=== PATIENT | female | born 1955 | race Caucasian/White ===

== ENCOUNTER 2022-04-15 17:48 | Inpatient (IN) ==
[2022-04-15 19:55] VITALS: BMI 24.7
[2022-04-15] MEDS: LR 1,000 ML IV 1,000 ML IV SCH (20:30)
[2022-04-15] MEDS: ZOSYN VIAL 3.375 GRAMS 3.375 G in NS 100 ML IV 100 ML IV SCH (20:59)
[2022-04-15] MEDS: DILAUDID INJ IVP PRN (23:24)
[2022-04-16 05:10] LABS: BASOPHILS # (AUTO) 0.2 X10^3/uL (0.0-0.1); BASOPHILS % (AUTO) 0.7 % (0.2-1.0); HEMATOCRIT 45.5 % (36.0-47.0); HEMOGLOBIN 15.4 g/dL (12.0-16.0); LYMPHOCYTES # (AUTO) 1.6 X10^3/uL (1.3-2.9); LYMPHOCYTES % (AUTO) 7.4 % (21.0-51.0); MEAN CORPUSCULAR HEMOGLOBIN 29.7 pg (27.0-34.0); MEAN CORPUSCULAR HGB CONC 33.8 g/dL (33.0-35.0); MEAN CORPUSCULAR VOLUME 87.9 fL (80.0-100.0); MEAN PLATELET VOLUME 7.5 fL (7.4-11.0); MONOCYTES # (AUTO) 0.7 x10^3/uL (0.3-0.8); MONOCYTES % (AUTO) 3.2 % (0.0-13.0); NEUTROPHILS # (AUTO) 19.3 x10^3/uL (2.2-4.8); NEUTROPHILS % (AUTO) 88.7 % (42.0-75.0); RED BLOOD COUNT 5.18 X10^6/uL (3.5-5.4); RED CELL DISTRIBUTION WIDTH 13.1 % (11.6-16.5); WHITE BLOOD COUNT 21.8 X10^3/uL (3.6-10.0)
[2022-04-16 05:25] LABS: ALANINE AMINOTRANSFERASE 17 Units/L (12-78); ALBUMIN 3.7 g/dL (3.4-5.0); ALKALINE PHOSPHATASE 90 Units/L (46-116); ASPARTATE AMINO TRANSFERASE 14 Units/L (15-37); BLOOD UREA NITROGEN 16 mg/dL (7-18); CALCIUM 8.8 mg/dL (8.5-10.1); CHLORIDE 97 mmol/L (98-107); COR NA(FOR HYPERGLY) 137 mmol/L (136-145); SODIUM 136 mmol/L (136-145); TOTAL PROTEIN 7.7 g/dL (6.4-8.2); eGFR NON BLACK RACES 47 (>60)
[2022-04-16 05:30] LABS: BAND NEUTROPHILS % 2 % (0-10)
[2022-04-16 05:31] LABS: PLATELET MORPHOLOGY COMMENT NORMAL (NORMAL)
[2022-04-16] MEDS: ZOSYN VIAL 3.375 GRAMS 3.375 G in NS 100 ML IV 100 ML IV SCH (06:33)
[2022-04-16] MEDS: LR 1,000 ML IV 1,000 ML IV SCH ×2 (07:54→10:04)
[2022-04-16] MEDS: DILAUDID INJ IVP PRN ×4 (07:55→18:19)
--- NOTE | 2022-04-16 09:58 | EKG ---
Test Reason : pre op Blood Pressure : */* mmHG Vent. Rate : 65 BPM Atrial Rate : 65 BPM P-R Int : 156 ms QRS Dur : 78 ms QT Int : 452 ms P-R-T Axes : 57 98 -84 degrees QTc Int : 470 ms Normal sinus rhythm Rightward axis Cannot rule out Inferior infarct , age undetermined Abnormal ECG No previous ECGs available Nonspecific T wave abnormality Confirmed by Carlos Alberto Shrestha ([id number]) on 04/17/2022 10:09:08 AM Referred By: Confirmed By: Carlos Alberto Shrestha
[2022-04-16] MEDS: K-RIDER 10 MEQ/NS 100 ML 10 MEQ/100 ML BAG IV SCH ×2 (10:11→15:29)
--- NOTE | 2022-04-16 10:35 | RAD ---
HISTORYPreop appendixSTUDYAP [id number] report onlyFINDINGSHeart size normal with sternal wires and clear lungs and pleural spaces.IMPRESSIONPostsurgical findings; no acute chest abnormality identified.Electronically signed by: AURELIANO MCKOY (Apr 16, 2022 10:33:44)
[2022-04-16] MEDS: MAGNESIUM SULFATE 1 GRAM/100 mL PREMIX 1 G/100 ML BAG IV PRN ×2 (11:41→17:00)
[2022-04-16] MEDS ORDERED: DUONEB 0.5 MG/3 MG (3 mL) NEB ONE (12:00)
[2022-04-16] MEDS ORDERED: ZOFRAN INJ 4 MG VIAL ONE ×2 (12:31→18:17)
[2022-04-16] MEDS ORDERED: PEPCID 20 MG VIAL ONE (12:31)
[2022-04-16] MEDS ORDERED: ZEMURON 100 MG VIAL ONE (12:31)
[2022-04-16] MEDS ORDERED: XYLOCAINE 2 % (PLAIN) ONE (12:31)
[2022-04-16] MEDS ORDERED: DIPRIVAN VIAL 20 ML ONE (12:31)
[2022-04-16] MEDS ORDERED: BRIDION ONE (12:32)
[2022-04-16] MEDS ORDERED: VERSED ONE (12:34)
[2022-04-16] MEDS ORDERED: FENTANYL VIAL INJ 100 mcg ONE (12:35)
[2022-04-16] MEDS ORDERED: MARCAINE/EPINEPHRINE ONE (12:38)
[2022-04-16] MEDS ORDERED: LR 1,000 ML IV 1,000 ML IV ONE (12:57)
[2022-04-16] MEDS ORDERED: ANCEF VIAL 1 GRAM ONE (13:02)
[2022-04-16] MEDS ORDERED: NS 100 ML IV 100 ML ONE (13:02)
[2022-04-16] MEDS ORDERED: ULTANE GAS IN ONE (13:16)
[2022-04-16] MEDS ORDERED: KETAMINE HCL ONE (13:16)
--- NOTE | 2022-04-16 13:20 | DR.H&P ---
H&P History & Physical for Day of: H&P Date: 04/16/22 Chief Complaint Chief Complaint: Abdominal pain, not mailnly RLQ. Allergies Allergies Allergy/AdvReac Type Severity Reaction Status Date / Time codeine Allergy Verified 04/15/22 19:11 History of Present Illness History of Present Illness: 66 year old female with 1 day history of diffuse lower abdominal pain now relocated to the right lower quadrant. Was evaluated at the emergency room in [place], [place] with a CT scan consistent with acute appendicitis with no evidence of rupture. [place] [id number] also evidence of probable urinary tract infection. Patient transferred to [facility] for laparoscopic appendectomy. Past Medical History Past Medical History: Anxiety, Coronary Artery Disease (History of CABG 2016. This was done for chest pain. No chest pain since that time period and has been followed regular by her slipman in [place] and she says she had a stress test within the last year which was negative. Continues to smoke cigarettes but not as heavily. She is not diabetic. ), GERD and Hypertension Additional Medical History: elevated cholesterol Past Surgical History Surgical History: , CABG/Valve Surgery and Ortho Surgery (Fusion of C-5 6 in the past ) Family History Family Medical History: Cancer Social History Does patient currently use any type of tobacco product: Yes Have you used tobacco products in the last 12 months: Yes Type of Tobacco Use: Cigarettes How many years tobacco product used: 50 Alcohol Use: None Drug Use: None Medications Home Medications: codeine Allergy (Verified 04/15/22 19:11) CONTINUE taking the following medications aspirin 81 mg tablet,delayed release 81 mg PO QDAY 04/16/22 [History] gabapentin 300 mg capsule 300 mg PO QHS 04/16/22 [History] metoprolol tartrate 25 mg tablet 25 mg PO QDAY 04/16/22 [History] pantoprazole 20 mg tablet,delayed release 1 tab PO QDAY 04/16/22 [History] simvastatin 40 mg tablet 1 tab PO QPM 04/16/22 [History] Labs Result Diagrams: 04/16/22 04:43 04/16/22 04:43 Labs: Laboratory WBC 21.8 X10^3/uL (3.6-10.0) H 04/16/22 04:43 RBC 5.18 X10^6/uL (3.5-5.4) 04/16/22 04:43 Hgb 15.4 g/dL (12.0-16.0) 04/16/22 04:43 Hct 45.5 % (36.0-47.0) 04/16/22 04:43 MCV 87.9 fL (80.0-100.0) 04/16/22 04:43 MCH 29.7 pg (27.0-34.0) 04/16/22 04:43 MCHC 33.8 g/dL (33.0-35.0) 04/16/22 04:43 RDW 13.1 % (11.6-16.5) 04/16/22 04:43 Plt Count 274 X10^3/uL (150.0-450.0) 04/16/22 04:43 Plt Count Comment Adequate (ADEQUATE) 04/16/22 04:43 MPV 7.5 fL (7.4-11.0) 04/16/22 04:43 Neut % (Auto) 88.7 % (42.0-75.0) H 04/16/22 04:43 Lymph % (Auto) 7.4 % (21.0-51.0) L 04/16/22 04:43 [place] % (Auto) 3.2 % (0.0-13.0) 04/16/22 04:43 Eos % (Auto) 0.0 % (0.9-2.9) L 04/16/22 04:43 Baso % (Auto) 0.7 % (0.2-1.0) 04/16/22 04:43 Neut # (Auto) 19.3 x10^3/uL (2.2-4.8) H 04/16/22 04:43 Lymph # (Auto) 1.6 X10^3/uL (1.3-2.9) 04/16/22 04:43 [place] # (Auto) 0.7 x10^3/uL (0.3-0.8) 04/16/22 04:43 Eos # (Auto) 0.0 x10^3/uL (0.0-0.2) 04/16/22 04:43 Baso # (Auto) 0.2 X10^3/uL (0.0-0.1) H 04/16/22 04:43 Absolute Nucleated RBC 0.0 /100WBC 04/16/22 04:43 Total Counted 100 04/16/22 04:43 Neutrophils % (Manual) 84 % (39-76) H 04/16/22 04:43 Band Neutrophils % 2 % (0-10) 04/16/22 04:43 Lymphocytes % (Manual) 11 % (13-43) L 04/16/22 04:43 Monocytes % (Manual) 3 % (4-9) L 04/16/22 04:43 Atypical Lymphocytes Few A 04/16/22 04:43 Plt Morphology Comment Normal (NORMAL) 04/16/22 04:43 RBC Morphology Normal (NORMAL) 04/16/22 04:43 Sodium 136 mmol/L (136-145) 04/16/22 04:43 Corrected Sodium 137 mmol/L (136-145) 04/16/22 04:43 Potassium 3.4 mmol/L (3.5-5.1) L 04/16/22 04:43 Chloride 97 mmol/L (98-107) L 04/16/22 04:43 Carbon Dioxide 28.0 mmol/L (21-32) 04/16/22 04:43 BUN 16 mg/dL (7-18) 04/16/22 04:43 Creatinine 1.20 mg/dL (0.55-1.02) H 04/16/22 04:43 Est GFR (MDRD) Af Amer 57 (>60) L 04/16/22 04:43 Est GFR (MDRD) Non-Af 47 (>60) L 04/16/22 04:43 Glucose 144 mg/dL (65-99) H 04/16/22 04:43 Calcium 8.8 mg/dL (8.5-10.1) 04/16/22 04:43 Corrected Calcium TNP 04/16/22 04:43 Magnesium 1.8 mg/dL (2.0-2.9) L 04/16/22 05:00 Total Bilirubin 0.90 mg/dL (0.2-1.0) 04/16/22 04:43 AST 14 Units/L (15-37) L 04/16/22 04:43 ALT 17 Units/L (12-78) 04/16/22 04:43 Alkaline Phosphatase 90 Units/L (46-116) 04/16/22 04:43 Total Protein 7.7 g/dL (6.4-8.2) 04/16/22 04:43 Albumin 3.7 g/dL (3.4-5.0) 04/16/22 04:43 Globulin 4.0 g/dL (2.5-4.5) 04/16/22 04:43 Albumin/Globulin Ratio 0.9 Ratio (1.1-2.1) L 04/16/22 04:43 Review of Systems Constitutional: See HPI Eyes: No Symptoms Reported ENT: No Symptoms Reported Respiratory: No Symptoms Reported Cardiovascular: No Symptoms Reported Gastrointestinal: See HPI Genitourinary: No Symptoms Reported Musculoskeletal: No Symptoms Reported Skin: No Symptoms Reported Neurological: No Symptoms Reported Physical Exam Vital Signs: Temperature 98.1 F Pulse Rate [Right Brachial] 67 Respiratory Rate 18 Blood Pressure [Right Arm] 126/60 O2 Sat by Pulse Oximetry 94 Oriented: Normal, Time, Person and Place Eyes: Normal Ear: Normal Nose: Normal Throat: Normal Respiratory: Clear Throughout Cardiovascular: Normal : Dysuria and Other (urine consistent with UTI) Auscultation: Bowel Sounds: Normal Tenderness: RLQ (with rebound/ Healed low midline incision for in the past. ) Skin: Normal Musculoskeletal: Normal Psychiatric: Normal Mood Description: Calm Affect: Normal Speech Pattern: Clear Assessment/Plan (1) Acute appendicitis: Status: Acute Plan: Plan laparoscopic appendectomy . Risks and benefits discussed and she agrees to proceed. Small but real risk of open appendectomy due to previous low mid line incision. (2) Coronary artery disease involving autologous artery coronary bypass graft with angina pectoris: Status: Acute Plan: current RX (3) Essential (primary) hypertension: Status: Acute Plan: current RX Review H&P Reviewed: Yes Patient was examined?: Yes
[2022-04-16] MEDS ORDERED: OFIRMEV IV 1000 MG VIAL 1,000 MG/100 ML VIAL IV ONE (13:31)
[2022-04-16] MEDS ORDERED: LACRI-LUBE S.O.P. ONE (13:31)
[2022-04-16] MEDS ORDERED: EPHEDRINE SULFATE INJ ONE (13:34)
[2022-04-16] MEDS ORDERED: TORADOL 30 MG VIAL ONE (13:37)
[2022-04-16] MEDS ORDERED: DECADRON INJ ONE (13:45)
[2022-04-16] MEDS ORDERED: ROBINUL ONE (14:07)
--- NOTE | 2022-04-16 14:22 | OR.IMMED ---
IMMEDIATE POST-OP NOTE Immediate Post-Op Note Pre-Op Diagnosis: acute appendicitis Post-Op Diagnosis: gangrenous appendicitis Procedure: laparoscopic appendectomy converted to open appendectomy due to significant adhesions from old low midline incision. Description of Procedure: see operative note Surgeon/Repair Specialist: Hayley Findings: acute , gangrenous appendicitis Specimens Removed: appendix Estimated Blood Loss: 50 cc Drains: Arash Anguiano (#10) Complications: none Discharge Progress Notes: Return to floor, Begin diet, continue antibiotics Monitor NEFTALI drain Final Diagnosis: above
[2022-04-16] MEDS ORDERED: BARHEMSYS INJ IVP PRN (14:37)
[2022-04-16] MEDS ORDERED: BENADRYL INJ 50 MG VIAL IVP PRN (14:37)
[2022-04-16] MEDS ORDERED: DILAUDID INJ ONE (14:53)
[2022-04-16] MEDS ORDERED: ZOFRAN INJ 4 MG VIAL IVP PRN (18:11)
[2022-04-16] MEDS: CIPRO TAB 500 MG PO SCH (20:34)
[2022-04-17] MEDS: LR 1,000 ML IV 1,000 ML IV SCH ×2 (03:25→11:03)
[2022-04-17 05:50] LABS: BASOPHILS # (AUTO) 0.1 X10^3/uL (0.0-0.1); BASOPHILS % (AUTO) 0.4 % (0.2-1.0); HEMATOCRIT 35.4 % (36.0-47.0); HEMOGLOBIN 12.1 g/dL (12.0-16.0); LYMPHOCYTES # (AUTO) 0.8 X10^3/uL (1.3-2.9); MEAN CORPUSCULAR HEMOGLOBIN 29.6 pg (27.0-34.0); MEAN CORPUSCULAR HGB CONC 34.3 g/dL (33.0-35.0); MEAN CORPUSCULAR VOLUME 86.5 fL (80.0-100.0); MEAN PLATELET VOLUME 7.4 fL (7.4-11.0); MONOCYTES # (AUTO) 0.7 x10^3/uL (0.3-0.8); MONOCYTES % (AUTO) 4.3 % (0.0-13.0); NEUTROPHILS # (AUTO) 14.8 x10^3/uL (2.2-4.8); NEUTROPHILS % (AUTO) 90.3 % (42.0-75.0); RED BLOOD COUNT 4.09 X10^6/uL (3.5-5.4); RED CELL DISTRIBUTION WIDTH 12.8 % (11.6-16.5); WHITE BLOOD COUNT 16.4 X10^3/uL (3.6-10.0)
[2022-04-17 05:58] LABS: ALANINE AMINOTRANSFERASE 12 Units/L (12-78); ALBUMIN 2.7 g/dL (3.4-5.0); ALKALINE PHOSPHATASE 66 Units/L (46-116); ASPARTATE AMINO TRANSFERASE 13 Units/L (15-37); BLOOD UREA NITROGEN 13 mg/dL (7-18); CALCIUM 8.2 mg/dL (8.5-10.1); CARBON DIOXIDE 25.7 mmol/L (21-32); CHLORIDE 102 mmol/L (98-107); COR CA(FOR HYPOALB) 9.2 mg/dL (8.5-10.1); COR NA(FOR HYPERGLY) 137 mmol/L (136-145); MAGNESIUM 2.4 mg/dL (2.0-2.9); SODIUM 136 mmol/L (136-145); TOTAL PROTEIN 6.2 g/dL (6.4-8.2); eGFR NON BLACK RACES > 60 (>60)
[2022-04-17 06:04] LABS: BAND NEUTROPHILS % 3 % (0-10); PLATELET MORPHOLOGY COMMENT NORMAL (NORMAL)
[2022-04-17] MEDS: CIPRO TAB 500 MG PO SCH ×2 (07:19→09:48)
[2022-04-17] MEDS: DILAUDID INJ IVP PRN ×2 (07:20→10:59)
[2022-04-17 12:04] VITALS: BP 107/53
--- NOTE | 2022-04-17 13:00 | W.DIS.FURT ---
Summary of Discharge Discharge Summary of Date Date of Exam: 04/17/22 Admission Date Date of Admission: 04/16/22 Admission Diagnosis Hospital Course: 66 year old female who presented with right lower quadrant pain. CT scan consistent with acute appendicitis. Evaluation also showed evidence of urinary tract infection .She was given IV antibiotics and was taken to the operative Suite with a planned laparoscopic appendectomy converted to an open appendectomy due to a previous low midline incision with significant adhesions. A Arash Anguiano drain was left in place. She is doing well, tolerating regular diet and ambulating. She'll be discharged home on PO Cipro 500 mg BID, Percocet 5 mg tablets 1 every 6 hours PRN pain how to care for the drain. I will see her in follow up on April 20 2022 . Vital Signs: Vital Signs (72 hours) 04/15/22 18:45 04/15/22 18:45 04/15/22 23:32 Temperature 100.3 F H 99.7 F H Pulse Rate Pulse Rate [Right Brachial] 62 87 Respiratory Rate 18 18 Blood Pressure Blood Pressure [Right Arm] 149/67 129/58 O2 Sat by Pulse Oximetry 94 L 91 L Oxygen Delivery Method Room Air Room Air Room Air 04/15/22 23:24 04/15/22 23:54 04/16/22 03:30 Temperature 98.1 F Pulse Rate Pulse Rate [Right Brachial] 72 Respiratory Rate 24 20 18 Blood Pressure Blood Pressure [Right Arm] 123/61 O2 Sat by Pulse Oximetry 93 L Oxygen Delivery Method Room Air 04/16/22 07:47 04/16/22 07:55 04/16/22 08:00 Temperature 98.6 F Pulse Rate Pulse Rate [Right Brachial] 72 Respiratory Rate 18 18 Blood Pressure Blood Pressure [Right Arm] 122/59 O2 Sat by Pulse Oximetry 94 L Oxygen Delivery Method Room Air Room Air 04/16/22 09:50 04/16/22 09:50 04/16/22 10:15 Temperature Pulse Rate Pulse Rate [Right Brachial] Respiratory Rate 18 Blood Pressure Blood Pressure [Right Arm] O2 Sat by Pulse Oximetry 95 Oxygen Delivery Method Room Air 04/16/22 12:00 04/16/22 13:05 04/16/22 13:37 Temperature 98.1 F Pulse Rate 75 Pulse Rate [Right Brachial] 67 Respiratory Rate 18 16 18 Blood Pressure 130/60 Blood Pressure [Right Arm] 126/60 O2 Sat by Pulse Oximetry 94 L 93 L Oxygen Delivery Method Room Air 04/16/22 14:31 04/16/22 14:36 04/16/22 14:41 Temperature 97.6 F Pulse Rate 68 76 80 Pulse Rate [Right Brachial] Respiratory Rate 16 16 16 Blood Pressure 149/67 155/67 157/70 Blood Pressure [Right Arm] O2 Sat by Pulse Oximetry 95 95 94 L Oxygen Delivery Method Oxy Mask Oxy Mask Nasal Cannula 04/16/22 14:46 04/16/22 14:56 04/16/22 14:51 Temperature Pulse Rate 71 75 Pulse Rate [Right Brachial] Respiratory Rate 16 16 16 Blood Pressure 160/62 160/77 Blood Pressure [Right Arm] O2 Sat by Pulse Oximetry 96 94 L Oxygen Delivery Method Nasal Cannula Nasal Cannula 04/16/22 15:07 04/16/22 14:56 04/16/22 15:05 Temperature Pulse Rate 80 76 Pulse Rate [Right Brachial] Respiratory Rate 16 16 16 Blood Pressure 154/67 170/77 Blood Pressure [Right Arm] O2 Sat by Pulse Oximetry 95 94 L Oxygen Delivery Method Nasal Cannula Nasal Cannula 04/16/22 15:33 04/16/22 15:34 04/16/22 15:34 Temperature Pulse Rate Pulse Rate [Right Brachial] Respiratory Rate 16 16 16 Blood Pressure Blood Pressure [Right Arm] O2 Sat by Pulse Oximetry Oxygen Delivery Method 04/16/22 18:19 04/16/22 16:25 04/16/22 15:25 Temperature 97.2 F L 97.8 F Pulse Rate 64 77 Pulse Rate [Right Brachial] Respiratory Rate 18 18 18 Blood Pressure 129/58 145/63 Blood Pressure [Right Arm] O2 Sat by Pulse Oximetry 95 94 L Oxygen Delivery Method Nasal Cannula Nasal Cannula 04/16/22 15:40 04/16/22 15:55 04/16/22 16:10 Temperature 97.8 F 97.2 F L 97.2 F L Pulse Rate 71 76 60 Pulse Rate [Right Brachial] Respiratory Rate 18 18 18 Blood Pressure 141/64 128/63 126/58 Blood Pressure [Right Arm] O2 Sat by Pulse Oximetry 92 L 96 95 Oxygen Delivery Method Nasal Cannula Nasal Cannula Nasal Cannula 04/16/22 17:25 04/16/22 18:25 04/16/22 18:49 Temperature 97.6 F 97.2 F L Pulse Rate 74 69 Pulse Rate [Right Brachial] Respiratory Rate 18 18 18 Blood Pressure 129/61 137/65 Blood Pressure [Right Arm] O2 Sat by Pulse Oximetry 95 95 Oxygen Delivery Method Nasal Cannula Nasal Cannula 04/16/22 19:00 04/16/22 19:25 04/16/22 20:25 Temperature 97.9 F 97.5 F L Pulse Rate Pulse Rate [Right Brachial] 60 72 Respiratory Rate 18 18 Blood Pressure Blood Pressure [Right Arm] 120/58 129/59 O2 Sat by Pulse Oximetry 95 95 Oxygen Delivery Method Room Air Room Air Room Air 04/16/22 20:25 04/16/22 20:25 04/16/22 23:46 Temperature 97.8 F Pulse Rate 70 Pulse Rate [Right Brachial] 73 Respiratory Rate 18 Blood Pressure Blood Pressure [Right Arm] 121/57 O2 Sat by Pulse Oximetry 95 95 Oxygen Delivery Method Room Air Room Air 04/17/22 04:00 04/17/22 07:20 04/17/22 08:00 Temperature 98.0 F 97.4 F L Pulse Rate Pulse Rate [Right Brachial] 70 71 Respiratory Rate 18 18 18 Blood Pressure Blood Pressure [Right Arm] 139/65 120/56 O2 Sat by Pulse Oximetry 95 93 L Oxygen Delivery Method Room Air Room Air 04/17/22 09:20 04/17/22 07:50 04/17/22 10:59 Temperature Pulse Rate Pulse Rate [Right Brachial] Respiratory Rate 18 18 Blood Pressure Blood Pressure [Right Arm] O2 Sat by Pulse Oximetry Oxygen Delivery Method Room Air 04/17/22 12:00 04/17/22 11:29 Temperature 98.0 F Pulse Rate Pulse Rate [Right Brachial] 59 L Respiratory Rate 20 18 Blood Pressure Blood Pressure [Right Arm] 107/53 O2 Sat by Pulse Oximetry 94 L Oxygen Delivery Method Labs: Laboratory Last Values WBC 16.4 X10^3/uL (3.6-10.0) H 04/17/22 05:21 RBC 4.09 X10^6/uL (3.5-5.4) 04/17/22 05:21 Hgb 12.1 g/dL (12.0-16.0) D 04/17/22 05:21 Hct 35.4 % (36.0-47.0) L 04/17/22 05:21 MCV 86.5 fL (80.0-100.0) 04/17/22 05:21 MCH 29.6 pg (27.0-34.0) 04/17/22 05:21 MCHC 34.3 g/dL (33.0-35.0) 04/17/22 05:21 RDW 12.8 % (11.6-16.5) 04/17/22 05:21 Plt Count 200 X10^3/uL (150.0-450.0) 04/17/22 05:21 Plt Count Comment Adequate (ADEQUATE) 04/17/22 05:21 MPV 7.4 fL (7.4-11.0) 04/17/22 05:21 Neut % (Auto) 90.3 % (42.0-75.0) H 04/17/22 05:21 Lymph % (Auto) 5.0 % (21.0-51.0) L 04/17/22 05:21 [place] % (Auto) 4.3 % (0.0-13.0) 04/17/22 05:21 Eos % (Auto) 0.0 % (0.9-2.9) L 04/17/22 05:21 Baso % (Auto) 0.4 % (0.2-1.0) 04/17/22 05:21 Neut # (Auto) 14.8 x10^3/uL (2.2-4.8) H 04/17/22 05:21 Lymph # (Auto) 0.8 X10^3/uL (1.3-2.9) L 04/17/22 05:21 [place] # (Auto) 0.7 x10^3/uL (0.3-0.8) 04/17/22 05:21 Eos # (Auto) 0.0 x10^3/uL (0.0-0.2) 04/17/22 05:21 Baso # (Auto) 0.1 X10^3/uL (0.0-0.1) 04/17/22 05:21 Absolute Nucleated RBC 0.0 /100WBC 04/17/22 05:21 Total Counted 100 04/17/22 05:21 Neutrophils % (Manual) 85 % (39-76) H 04/17/22 05:21 Band Neutrophils % 3 % (0-10) 04/17/22 05:21 Lymphocytes % (Manual) 7 % (13-43) L 04/17/22 05:21 Monocytes % (Manual) 5 % (4-9) 04/17/22 05:21 Atypical Lymphocytes Few A 04/16/22 04:43 Plt Morphology Comment Normal (NORMAL) 04/17/22 05:21 RBC Morphology Normal (NORMAL) 04/17/22 05:21 Sodium 136 mmol/L (136-145) 04/17/22 05:21 Corrected Sodium 137 mmol/L (136-145) 04/17/22 05:21 Potassium 4.1 mmol/L (3.5-5.1) 04/17/22 05:21 Chloride 102 mmol/L (98-107) 04/17/22 05:21 Carbon Dioxide 25.7 mmol/L (21-32) 04/17/22 05:21 BUN 13 mg/dL (7-18) 04/17/22 05:21 Creatinine 0.70 mg/dL (0.55-1.02) 04/17/22 05:21 Est GFR (MDRD) Af Amer > 60 (>60) 04/17/22 05:21 Est GFR (MDRD) Non-Af > 60 (>60) 04/17/22 05:21 Glucose 146 mg/dL (65-99) H 04/17/22 05:21 Calcium 8.2 mg/dL (8.5-10.1) L 04/17/22 05:21 Corrected Calcium 9.2 mg/dL (8.5-10.1) 04/17/22 05:21 Magnesium 2.4 mg/dL (2.0-2.9) 04/17/22 05:21 Total Bilirubin 0.40 mg/dL (0.2-1.0) 04/17/22 05:21 AST 13 Units/L (15-37) L 04/17/22 05:21 ALT 12 Units/L (12-78) 04/17/22 05:21 Alkaline Phosphatase 66 Units/L (46-116) 04/17/22 05:21 Total Protein 6.2 g/dL (6.4-8.2) L 04/17/22 05:21 Albumin 2.7 g/dL (3.4-5.0) L 04/17/22 05:21 Globulin 3.5 g/dL (2.5-4.5) 04/17/22 05:21 Albumin/Globulin Ratio 0.8 Ratio (1.1-2.1) L 04/17/22 05:21 Tissue Pathology To follow 04/16/22 14:06 Reason For Visit: ACUTE APPENDICITIS, UTI Discharge Diagnosis All Active Problems (Updated 04/16/22 @ 13:17 by Pietro Hardy) Essential (primary) hypertension (Acute) Coronary artery disease involving autologous artery coronary bypass graft with angina pectoris (Acute) Acute appendicitis (Acute) Plan of Treatment: Continue with present treatment and follow up plan. Pt is to keep follow up appointment as instructed and take medications as ordered. Discharge Medications Discharge Medications: codeine Allergy (Verified 04/15/22 19:11) CONTINUE taking the following medications aspirin 81 mg tablet,delayed release 81 mg PO QDAY 04/16/22 [History] gabapentin 300 mg capsule 300 mg PO QHS 04/16/22 [History] metoprolol tartrate 25 mg tablet 25 mg PO QDAY 04/16/22 [History] pantoprazole 20 mg tablet,delayed release 1 tab PO QDAY 04/16/22 [History] simvastatin 40 mg tablet 1 tab PO QPM 04/16/22 [History] New Prescriptions ciprofloxacin HCl 500 mg tablet (Cipro) 500 mg PO BID #10 tabs 04/17/22 [Rx] oxycodone-acetaminophen 5 mg-325 mg tablet (Percocet) 1 tab PO Q6H PRN #20 tabs 04/17/22 [Rx] Discharge Disposition Assessment: acute appendicitis Discharge Plan Discharge Plan Hospital Course: 66 year old female who presented with right lower quadrant pain. CT scan consistent with acute appendicitis. Evaluation also showed evidence of urinary tract infection .She was given IV antibiotics and was taken to the operative Suite with a planned laparoscopic appendectomy converted to an open appendectomy due to a previous low midline incision with significant adhesions. A Arash Anguiano drain was left in place. She is doing well, tolerating regular diet and ambulating. She'll be discharged home on PO Cipro 500 mg BID, Percocet 5 mg tablets 1 every 6 hours PRN pain how to care for the drain. I will see her in follow up on April 20 2022 . Patient Disposition: HOME, SELF-CARE Condition: Stable Health Concerns: Post Hospitalization: new medications and changes needed to prevent readmission or further decline. Pt educated and given instructions on all concerns. Care Plan Goals: instruct how to care for the drain Plan of Treatment: Continue with present treatment and follow up plan. Pt is to keep follow up appointment as instructed and take medications as ordered. Assessment: acute appendicitis Prescription drug monitoring program results: PDMP reviewed and no concerns identified Prescriptions: New ciprofloxacin HCl [Cipro] 500 mg tablet 500 mg PO BID Qty: 10 0RF oxycodone-acetaminophen [Percocet] 5-325 mg tablet 1 tab PO Q6H MDD 4 PRNQty: 20 0RF Continued aspirin 81 mg Tablet,Delayed Release (Dr/Ec) 81 mg PO QDAY simvastatin 40 mg tablet 1 tab PO QPM pantoprazole 20 mg tablet,delayed release (DR/EC) 1 tab PO QDAY gabapentin 300 mg Capsule 300 mg PO QHS metoprolol tartrate 25 mg Tablet 25 mg PO QDAY Follow ups/Referrals Follow ups/Referrals: Pietro Hardy [Primary Care Provider] - 1 WEEK Instructions Instructions: Open Appendectomy, Adult, Surgical Drain Home Care Activity Restrictions/Additional Instructions: CALL DR. HARDY'S OFFICE ON TUESDAY TO OBTAIN APPOINTMENT DATE AND TIME FOR TUESDAY. MEASURE OUTPUT FROM DRAIN AND RECORD. Stand Alone Forms: Excuse From Work or School
--- NOTE | 2022-04-17 18:23 | DR.OPNOTE ---
OP NOTE Pre-Op Diagnosis: acute appendicitis Post-Op Diagnosis: same Procedure Date Date Of Procedure: 04/16/22 Procedure: PROCEDURE: Laparoscopic appendectomy converted to open appendectomy NARRATIVE : The patient was taken to the operative suite, placed in the supine position and general endotracheal anesthesia induced. The entire abdomen prepped and draped in sterile fashion. Time out for the procedure obtained . 5 mm incision was made lateral to the left rectus sheath online with the umbilicus and a 5 mm trocar used to enter the abdominal cavity. Abdomen insufflated to 15 mm of mercury with carbon dioxide. There were significant intra-abdominal adhesions from a previous low midline incision. I was able to get a 5 mm trocar in the midline above the pubic tubercles. I felt it best to convert to an open appendectomy . All trocars removed. Standard Eben Yury 4 cm incision made in the right lower quadrant and electro-cautery used to open the subcutaneous tissue and the external oblique fascia . The muscle was split and the peritoneum opened. This was difficult as the bowel was fused to the peritoneum from the previous mid-line incision . When the peritoneum was opened , I elevated the appendix through the wound. Appendix fell apart but had not been ruptured prior to this. Purse string suture of 2-0 silk placed around the base of the appendix. The base of the appendix crushed with a hemostat then tied with a 2-0 chromic suture. Appendix removed with a 15 knife blade. The base of the appendix inverted through the purse string suture and tied into position. The abdomen irrigated with saline. A flat number 10 Arash Anguiano drain placed in the right lower quadrant and brought out through a separate stab incision .The drain secured to the skin with a silk suture ligature. The peritoneum closed with running 3-0 Vicryl suture . The external oblique fashion clothes with running 3-0 Vicryl suture. The skin close loosely with interrupted 4-0 Nylon sutures as were the two previously placed trocar incisions . Dressings applied . The patient was taken to the recovery room after extubation in good condition. Type of Anesthesia: General Anesthetic w/ETT Findings: acute appendicitis Specimen/Pathology: appendix Type of Fluids Used:: Lactated Ringers EBL: < 50 cc Drains/Tubes Placed: Arash Anguiano (#10 NEFTALI) Complications:: none Needle/Sponge Count:: correct Disposition/Condition: Pt. tolerated procedure without difficulty. Extubated in the OR and taken to PACU in stable condition.
== END 2022-04-17 13:15 | disposition home or self-care (01) | DRG 342 ==
LOC: MED/SURG 18:41
PROVIDERS: ADMIT Surgery; ATTEND Surgery